=== PATIENT | male | born 1930 | race Caucasian/White ===

== ENCOUNTER 2016-08-05 05:56 | Emergency (ER) | payer MEDICARE, OTHER ==
--- NOTE | 2016-08-08 01:36 | ER ---
ADMIT: 08/05/2016 RM/LOC: ER [facility] MR#: [id number] [id number] [address] [place] [address] Emergency Room Report SEX: M AGE: 85 : 1930 DATE: 08/05/2016 ADDENDUM: An 85-year-old male, presents to the ER complaining of pain in his left calf. He states he has had problems with plantar fasciitis for the past several weeks. Then, he actually had an injection done in the past week of cortisone. He states he has had continued pain in the plantar fascia, but he is now having pain in his left calf which is quite severe. He denies having any swelling at this time, but states he has been having some swelling in that leg intermittently. 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 Additionally, he states he is having some pain in his chest intermittently this morning. He describes it as heaviness or pressure. At this point, there are labs pending including cardiac enzymes, and a D- dimer. He was given 4 baby aspirin in the Emergency Department, and a chest x- ray was done and is normal. His EKG does not show any signs of ST-elevation or acute IL. The results of the tests and final disposition will be followed up by Dr. Ovalles. Oswald Nunn MD/ kaitlin JOB #: [id number] CC: Oswald Nunn MD, Attending Physician Jesus Huddleston MD, Family Physician
--- NOTE | 2016-08-10 23:42 | ER ---
ADMIT: 08/05/2016 RM/LOC: ER [facility] MR#: [id number] [address] [address] [facility] [place] [place] [address] Emergency Room Report SEX: M AGE: 85 : 1930 DATE: 08/05/2016 TIME: 0556 hours. Please refer to my T-sheet for complete H and P. HISTORY OF PRESENT ILLNESS: Briefly, the patient is an 85-year-old, who comes in with left leg pain. He also mentioned to Dr. Nunn that he had some chest pain. He is not having it now. He was given aspirin. I am following up on his labs. His CBC was normal except for a hemoglobin of 13.4. Chemistries normal. Troponin was negative. Ultrasound of his left lower extremity was negative. EKG was sinus rhythm, rate 62, no changes. Chest x-ray was negative, and D-dimer was negative. Vital signs stable. I did talk to [place] and he is going to follow him up in the clinic. ASSESSMENT: 1. Left leg pain. 2. Atypical chest pain. 3. Left lower extremity neuropathy. PLAN: We will have him follow up with Dr. Huddleston, return if worse. Rest and elevate. Ponce Ovalles MD/ modl JOB #: [id number] CC: Oswald Nunn MD, Attending Physician Jesus Huddleston MD, Family Physician
== END 2016-08-05 08:22 | disposition home or self-care (01) ==
LOC: ER 05:56
DX: G57.92 Unspecified mononeuropathy of left lower limb (principal); R07.89 Other chest pain; I10 Essential (primary) hypertension; E78.00 Pure hypercholesterolemia, unspecified; Z90.89 Acquired absence of other organs